=== PATIENT | female | born 1995 | race Caucasian/White ===

== ENCOUNTER 2017-01-08 23:32 | Emergency (ER) | payer BC ==
[~2017-01-08] VITALS: Ht 160 cm; Wt 47.7 kg
[2017-01-08 23:35] VITALS: TEMP 97.8
[2017-01-09 00:30] LABS: BASO % 0.3 % (0.0-2.0); EOS # 0.2 (0.0-0.7); EOS % 2.3 % (0-4.0); GRAN # 6.6 (1.4-6.5); GRAN % 76.6 % (42.2-75.2); HEMATOCRIT 38.5 % (37.0-47.0); LYMPH # 1.3 (1.2-3.4); LYMPH % 15.5 % (20.0-51.0); MEAN CELL VOLUME 83 fl (80.0-100.0); MEAN CORPUSCULAR HEMOGLOBIN 28 pg (27.0-31.0); MEAN CORPUSCULAR HGB CONC 34 g/dl (33.0-37.0); MEAN PLATELET VOLUME 10.2 fl (7.4-10.4); MONO # 0.4 (0.1-0.6); MONO % 5.1 % (1.7-9.3); PLATELET COUNT 233 K/mm3 (130-400); RED BLOOD COUNT 4.63 M/mm3 (4.10-5.30); REDCELL DISTRIBUTION WIDTH-CV 12.2 % (11.5-14.5); WHITE BLOOD COUNT 8.7 K/mm3 (4.8-10.8)
[2017-01-09 00:32] LABS: PH 8 (5-8); SQUAMOUS EPITHELIAL 0-2 /hpf; URINE APPEARANCE Clear; URINE BACTERIA None Seen /hpf; URINE BILIRUBIN Negative (NEGATIVE); URINE BLOOD 1+ (NEGATIVE); URINE COLOR Yellow; URINE GLUCOSE Negative (NEGATIVE); URINE KETONE Negative (NEGATIVE); URINE RBC 20-50 /hpf; URINE UROBILINOGEN Negative (NEGATIVE); URINE WBC 0-2 /hpf
[2017-01-09 00:46] LABS: ADJUSTED CALCIUM 9.2 mg/dL (8.4-10.2); ALBUMIN 4.1 gm/dL (3.5-5.0); BILIRUBIN,TOTAL 1.2 mg/dL (0.0-1.0); CALCIUM 9.3 mg/dL (8.4-10.2); CREATININE, serum 0.67 mg/dL (0.52-1.25); POTASSIUM 3.7 mmol/L (3.4-5.0); TOTAL PROTEIN 7.2 gm/dL (6.4-8.2)
[2017-01-09] MEDS ORDERED: ZOFRAN 4MG T4 MG/TAB PO (00:55)
[2017-01-09 01:16] VITALS: BP 108/64; PULSE 60
== END 2017-01-09 01:18 | disposition home or self-care (01) ==
LOC: COL.ER 23:32
PROVIDERS: Nurse Practitioner
DX: R10.11 Right upper quadrant pain (principal); R11.2 Nausea with vomiting, unspecified
CPT/HCPCS: J2405; J7030

== ENCOUNTER 2018-02-19 21:33 | Emergency (ER) | payer MEDICAID ==
[~2018-02-19 21:33] MED LIST: ZOFRAN 4MG T4 MG/TAB PO
[2018-02-19 21:41] VITALS: TEMP 96.9
[2018-02-19] MEDS ORDERED: ATARAX50 MG PO (21:47)
[2018-02-19 23:21] VITALS: BP 107/77; PULSE 57
== END 2018-02-19 23:18 | disposition home or self-care (01) ==
LOC: COL.ER 21:33
DX: R11.10 Vomiting, unspecified (principal); F41.9 Anxiety disorder, unspecified
CPT/HCPCS: J2550; J7030

== ENCOUNTER 2018-07-20 19:22 | Emergency (ER) | payer OTHER ==
[~2018-07-20] VITALS: Ht 160 cm; Wt 52.3 kg
[~2018-07-20 19:22] MED LIST changes: +ATARAX50 MG PO
[2018-07-20] MEDS ORDERED: FLEXERIL 1010 MG/TAB PO (20:29)
[2018-07-20 21:40] VITALS: BP 128/79; PULSE 72; TEMP 98
== END 2018-07-20 21:36 | disposition home or self-care (01) ==
LOC: COL.ER 19:22
DX: S23.9XXA Sprain of unspecified parts of thorax, initial encounter (principal); V43.52XA Car driver injured in collision with other type car in traffic accident, initial encounter

== ENCOUNTER 2019-03-06 23:27 | Emergency (ER) | payer BC ==
[~2019-03-06] VITALS: Ht 160 cm; Wt 52.3 kg
[~2019-03-06 23:27] MED LIST changes: +FLEXERIL 1010 MG/TAB PO
[2019-03-06 23:39] VITALS: TEMP 98.4
[2019-03-07] MEDS ORDERED: KLONOPIN 1MG1 MG PO (01:09)
[2019-03-07 01:20] VITALS: BP 116/64; PULSE 77
== END 2019-03-07 01:20 | disposition home or self-care (01) ==
LOC: COL.ER 23:27
DX: R11.10 Vomiting, unspecified (principal); F41.9 Anxiety disorder, unspecified
CPT/HCPCS: J2405; J7030

== ENCOUNTER 2019-06-10 19:44 | Emergency (ER) | payer BC ==
[~2019-06-10] VITALS: Ht 160 cm; Wt 47.7 kg
[~2019-06-10 19:44] MED LIST changes: +KLONOPIN 1MG1 MG PO
[2019-06-10 19:51] VITALS: TEMP 98.4
[2019-06-10 20:21] LABS: BASO % 0.3 % (0.0-2.0); EOS % 0.3 % (0-4.0); GRAN # 10.8 (1.4-6.5); GRAN % 77.7 % (42.2-75.2); HEMATOCRIT 43.1 % (37.0-47.0); HEMOGLOBIN 14.4 g/dl (12.5-16.0); LYMPH # 2.2 (1.2-3.4); MEAN CELL VOLUME 83 fl (80.0-100.0); MEAN CORPUSCULAR HEMOGLOBIN 28 pg (27.0-31.0); MEAN CORPUSCULAR HGB CONC 33 g/dl (33.0-37.0); MEAN PLATELET VOLUME 10.8 fl (7.4-10.4); MONO # 0.7 (0.1-0.6); MONO % 5.3 % (1.7-9.3); PLATELET COUNT 283 K/mm3 (130-400); RED BLOOD COUNT 5.21 M/mm3 (4.10-5.30); REDCELL DISTRIBUTION WIDTH-CV 12.3 % (11.5-14.5)
[2019-06-10 20:45] LABS: ALANINE AMINOTRANSFERASE 10 U/L (9-52); ALKALINE PHOSPHATASE 70 U/L (50-136); ANION GAP 15 mmol/L (7-16); AST,SGOT 23 U/L (15-37); BILIRUBIN,TOTAL 1.4 mg/dL (0.0-1.0); BLOOD UREA NITROGEN 10 mg/dL (7-17); CALCIUM 10.1 mg/dL (8.4-10.2); CARBON DIOXIDE 25 mmol/L (22-30); CHLORIDE 102 mmol/L (98-107); CREATININE, serum 0.65 (0.52-1.25); GLUCOSE 118 mg/dL (74-106); POTASSIUM 3.5 mmol/L (3.4-5.0); SODIUM 142 mmol/L (137-145); TOTAL PROTEIN 8.2 gm/dL (6.4-8.2)
[2019-06-10 20:49] LABS: C-REACTIVE PROTEIN < 0.5 mg/dL (0.0-0.9)
[2019-06-10 20:51] LABS: COLLECTION METHOD CLEAN CATCH
[2019-06-10 21:07] LABS: MUCOUS Present /lpf; PH 9 (5-8); URINE APPEARANCE Hazy; URINE BACTERIA None Seen /hpf; URINE BILIRUBIN Negative (NEGATIVE); URINE BLOOD Negative (NEGATIVE); URINE COLOR Yellow; URINE GLUCOSE Negative (NEGATIVE); URINE KETONE 2+ (NEGATIVE); URINE LEUKOCYTE ESTERASE Trace (NEGATIVE); URINE NITRATE Negative (NEGATIVE); URINE PROTEIN(semi-quant) Negative (NEGATIVE); URINE RBC 0-2 /hpf; URINE UROBILINOGEN Negative (NEGATIVE)
[2019-06-10] MEDS ORDERED: PRILOSEC 20MG20 MG PO (22:10)
[2019-06-10] MEDS ORDERED: ZOFRAN ODT4 MG PO (22:10)
[2019-06-10 22:34] VITALS: BP 111/73; PULSE 98
== END 2019-06-10 22:34 | disposition home or self-care (01) ==
LOC: COL.ER 19:44
PROVIDERS: Physician Assistant
DX: R11.10 Vomiting, unspecified (principal); F41.9 Anxiety disorder, unspecified; K21.9 Gastro-esophageal reflux disease without esophagitis; Z98.890 Other specified postprocedural states
CPT/HCPCS: C9113; J1200; J2405; J2765; J7030